=== PATIENT | female | born 1975 | race African-American/Black ===

== ENCOUNTER 2022-09-17 11:33 | Emergency (ER) | payer OTHER ==
[2022-09-17] VITALS (7 sets, daily range): BP systolic 132–161; BP diastolic 82–98
[~2022-09-17] VITALS: Ht 162.6 cm; Wt 86.2 kg
== END 2022-09-17 13:09 | disposition home or self-care (01) | DRG 923 ==
LOC: ED 11:33 → EDBD 12:23 → ED 12:23
DX: Z04.1 Encounter for examination and observation following transport accident (principal); V43.52XA Car driver injured in collision with other type car in traffic accident, initial encounter

== ENCOUNTER 2024-07-24 10:33 | Emergency (ER) | payer OTHER ==
[~2024-07-24] VITALS: Ht 162.6 cm; Wt 90.0 kg
[2024-07-24] VITALS (9 sets, daily range): BP systolic 147–187; BP diastolic 82–101
[2024-07-24] MEDS ORDERED: KETOROLAC TROMETHAMINE 30 MG/ML SDV IV ONE (12:30)
[2024-07-24] MEDS ORDERED: ISOVUE-300 (Iopamidol) 100 ML SDV IV ONE (12:30)
[2024-07-24 12:53] LABS: BASO% 0.4 % (0-3); EOS% 2.3 % (0-8); HEMATOCRIT 36.2 % (37.0-47.0); HEMOGLOBIN 12.1 g/dl (12.0-16.0); IMMATURE GRANULOCYTES 0.8 % (0.0-5.0); LYMPH% 26.6 % (15-41); MEAN CELL VOLUME 79.7 fL CALC (80.0-100.0); MEAN CORPUSCULAR HGB 26.7 pG CALC (26.0-32.0); MEAN CORPUSCULAR HGB CONC 33.4 g/dL CAL (32.0-36.0); MONO% 6.5 % (2-13); NEUT# 4.89 thou/uL (2.00-7.15); NEUT% 63.4 % (42-76); RED BLOOD COUNT 4.54 mill/uL (4.20-5.60); RED CELL DISTRI WIDTH 13.5 % (11.5-15.5)
[2024-07-24 13:00] LABS: ALBUMIN 4.2 g/dL (3.2-5.0); BILIRUBIN, TOTAL 0.4 mg/dL (0.02-1.3); CREATININE 0.7 mg/dL (0.5-1.0); POTASSIUM 4.1 mmol/l (3.5-5.1); TOTAL PROTEIN 7.9 g/dL (6.3-8.2)
[2024-07-24 14:26] LABS: URINE BILIRUBIN - DIPSTICK Negative (NEGATIVE); URINE BLOOD DIPSTICK Moderate (NEGATIVE); URINE COLOR Yellow; URINE GLUCOSE - DIPSTICK Negative (NEGATIVE); URINE KETONE Negative (NEGATIVE); URINE LEUK ESTERASE Negative (NEGATIVE); URINE NITRITE - DIPSTICK Negative (Negative); URINE PROTEIN - DIPSTICK Negative (NEG-TRACE); URINE SPECIFIC GRAVITY 1.015; URINE UROBILINOGEN - DIPSTICK 0.2 E.U./dL (0.2)
[2024-07-24] MEDS ORDERED: NAPROXEN500 MG PO (14:45)
== END 2024-07-24 15:03 | disposition home or self-care (01) | DRG 948 ==
LOC: ED 10:33
PROVIDERS: Family Medicine
DX: R52 Pain, unspecified (principal); I10 Essential (primary) hypertension; Z20.822 Contact with and (suspected) exposure to COVID-19